=== PATIENT | male | born 1980 | race Caucasian/White ===

== ENCOUNTER 2018-04-20 01:11 | Emergency (ER) | payer SELFPAY ==
[2018-04-20 01:58] LABS: Protime INR 0.94
[2018-04-20 02:08] LABS: Barbiturates NEGATIVE (NEGATIVE); Benzodiazepines NEGATIVE (NEGATIVE); Cocaine NEGATIVE (NEGATIVE); METHAMPHETAM POSITIVE (NEGATIVE); Methadone NEGATIVE (NEGATIVE); Opiates NEGATIVE (NEGATIVE); Phencyclidine NEGATIVE (NEGATIVE); THC Cannibis NEGATIVE (NEGATIVE)
[2018-04-20 02:11] LABS: Absolute Lymphocytes (CBC) 3.2 K/uL (0.7-4.9); Absolute Monocytes 0.6 K/uL (0.1-1.3); Absolute Neutrophil 3.5 K/uL (1.8-8.0); Basophils % 1.3 % (0-1.3); Eosinophils % 4.2 % (0-4.4); Hematocrit 40.4 % (39.6-49.0); Lymphocytes % 41.8 % (15.3-44.8); MCH 30.5 pg (27.0-35.0); MCV 87.3 fL (80-100); MPV 8.7 fL (7.6-11.3); Monocytes % 7.4 % (3.3-12.3); RBC Red Blood Cell Count 4.62 M/uL (4.33-5.43)
--- NOTE | 2018-04-20 02:14 | EDPHYS ---
Physician Documentation [facility] Name: Enmanuel Perez Age: 37 yrs Sex: Male : 1980 Arrival Date: 04/20/2018 Time: 01:11 Bed 6 Private MD: ED Physician Yony Heard HPI: 04/20 02:06 This 37 yrs old Male presents to ER via Ambulatory with complaints of Chest skyler Pain. 02:06 The patient or guardian reports chest pain that is located primarily in the epigastric skyler area, anterior chest wall. The pain does not radiate. Associated signs and symptoms: The patient has no apparent associated signs or symptoms. The chest pain is described as aching. Duration: The patient or guardian reports multiple episodes, with no pattern. Modifying factors: The symptoms are alleviated by nothing. Severity of pain: At its worst the pain was mild moderate in the emergency department the pain is unchanged. The patient has not experienced similar symptoms in the past. Historical: - Allergies: 01:30 Clindamycin; ak1 - Home Meds: 01:30 None [Active]; ak1 - PMHx: 01:30 Anxiety; Hypertension; ak1 - PSHx: 01:30 None; ak1 - Immunization history:: Adult Immunizations unknown. - Social history:: Smoking status: Patient uses tobacco products, smokes one-half pack cigarettes per day. - Ebola Screening: : No symptoms or risks identified at this time. - Family history:: not pertinent. ROS: 02:06 Constitutional: Negative for fever, chills, and weight loss, Eyes: Negative for injury, skyler pain, redness, and discharge, ENT: Negative for injury, pain, and discharge, Neck: Negative for injury, pain, and swelling, Respiratory: Negative for shortness of breath, cough, wheezing, and pleuritic chest pain, Abdomen/GI: Negative for abdominal pain, nausea, vomiting, diarrhea, and constipation, Back: Negative for injury and pain, : Negative for injury, bleeding, discharge, and swelling, MS/Extremity: Negative for injury and deformity, Skin: Negative for injury, rash, and discoloration, Neuro: Negative for headache, weakness, numbness, tingling, and seizure. 02:06 Cardiovascular: Positive for palpitations. Exam: 02:06 Constitutional: This is a well developed, well nourished patient who is awake, alert, skyler and in no acute distress. Head/Face: Normocephalic, atraumatic. Eyes: Pupils equal round and reactive to light, extra-ocular motions intact. Lids and lashes normal. Conjunctiva and sclera are non-icteric and not injected. Cornea within normal limits. Periorbital areas with no swelling, redness, or edema. ENT: Nares patent. No nasal discharge, no septal abnormalities noted. Tympanic membranes are normal and external auditory canals are clear. Oropharynx with no redness, swelling, or masses, exudates, or evidence of obstruction, uvula midline. Mucous membranes moist. Neck: Trachea midline, no thyromegaly or masses palpated, and no cervical lymphadenopathy. Supple, full range of motion without nuchal rigidity, or vertebral point tenderness. No Meningismus. Chest/axilla: Normal chest wall appearance and motion. Nontender with no deformity. No lesions are appreciated. Cardiovascular: Regular rate and rhythm with a normal S1 and S2. No gallops, murmurs, or rubs. Normal PMI, no JVD. No pulse deficits. Respiratory: Lungs have equal breath sounds bilaterally, clear to auscultation and percussion. No rales, rhonchi or wheezes noted. No increased work of breathing, no retractions or nasal flaring. Abdomen/GI: Soft, non-tender, with normal bowel sounds. No distension or tympany. No guarding or rebound. No evidence of tenderness throughout. Back: No spinal tenderness. No costovertebral tenderness. Full range of motion. Male : Normal genitalia with no discharge or lesions. Skin: Warm, dry with normal turgor. Normal color with no rashes, no lesions, and no evidence of cellulitis. MS/ Extremity: Pulses equal, no cyanosis. Neurovascular intact. Full, normal range of motion. Neuro: Awake and alert, GCS 15, oriented to person, place, time, and situation. Cranial nerves II-XII grossly intact. Motor strength 5/5 in all extremities. Sensory grossly intact. Cerebellar exam normal. Normal gait. Psych: Awake, alert, with orientation to person, place and time. Behavior, mood, and affect are within normal limits. 02:06 Musculoskeletal/extremity: DVT Exam: No signs of deep vein thrombosis. no pain, no swelling, no tenderness, negative Homans' sign noted on exam, no appreciated bluish discoloration, no erythema, no increased warmth. Vital Signs: 01:30 BP 160 / 87; Pulse 98; Resp 18; Temp 98.1; Pulse Ox 97% on R/A; Weight 86.18 kg (R); ak Height 5 ft. 9 in. (175.26 cm) (R); Pain 10/21; 01:56 BP 115 / 70; Pulse 84; Resp 16; Pulse Ox 98% on R/A; mt 01:30 Body Mass Index 28.06 (86.18 kg, 175.26 cm) [facility] MDM: 01:45 Patient medically screened. [facility] 02:10 Data reviewed: vital signs, nurses notes, lab test result(s), EKG, radiologic studies, [facility] plain films. 04/20 01:44 Order name: Basic Metabolic Panel [facility] 04/20 01:44 Order name: CBC with Diff [facility] 04/20 01:44 Order name: Ckmb [facility] 04/20 01:44 Order name: CPK [facility] 04/20 01:44 Order name: LFT's [facility] 04/20 01:44 Order name: Magnesium [facility] 04/20 01:44 Order name: NT PRO-BNP [facility] 04/20 01:44 Order name: PT-INR [facility] 04/20 01:44 Order name: Ptt, Activated [facility] 04/20 01:44 Order name: Troponin (emerg Dept Use Only) [facility] 04/20 01:44 Order name: UDS; Complete Time: 02:11 [facility] 04/20 01:45 Order name: Basic Metabolic Panel EDMS 04/20 01:51 Order name: Urine Dipstick--Ancillary (enter results) 2 04/20 01:44 Order name: XRAY Chest (1 view) [facility] 04/20 01:44 Order name: EKG; Complete Time: 01:45 [facility] 04/20 01:44 Order name: Cardiac monitoring; Complete Time: 01:48 [facility] 04/20 01:44 Order name: EKG - Nurse/Tech; Complete Time: 01:45 [facility] 04/20 01:44 Order name: IV Saline Lock; Complete Time: 01:52 [facility] 04/20 01:44 Order name: Labs collected and sent; Complete Time: 01:52 ak04/20 01:44 Order name: O2 Per Protocol; Complete Time: :04/20 01:44 Order name: O2 Sat Monitoring; Complete Time: 04/20 01:44 Order name: Urine Dipstick-Ancillary (obtain specimen); Complete Time: nv04/20 02:09 Order name: D-Dimer EDMS Administered Medications: 02:22 Not Given (Patient Eloped): Aspirin 162 mg PO once ao Disposition: 04/20/18 02:13 Patient left the facility after being seen by provider. Preliminary diagnosis are Other chest pain, Anxiety disorder, unspecified. - Patient left due to other. - Condition is Undetermined. - Problem is new. - Symptoms have improved. Signatures: Dispatcher [employer] EDNM Yony Heard MD MD cha Krenek, Amber, RN RN ak1 Mando Knowles RN RN ao Corrections: (The following items were deleted from the chart) 02:09 02:06 D-DIMER+COAG.LAB.BRZ ordered. [facility] EDNM 02:21 02:13 04/20/2018 02:13 Patient left the facility after being seen by provider. ao Preliminary diagnosis is Other chest pain; Anxiety disorder, unspecified. Reason stated they are leaving due to other. Condition is Undetermined. Problem is new. Symptoms have improved. skyler
--- NOTE | 2018-04-20 02:14 | ER ---
Nurse's Notes [facility] Name: Enmanuel Perez Age: 37 yrs Sex: Male : 1980 Arrival Date: 04/20/2018 Time: 01:11 Bed 6 Private MD: Diagnosis: Other chest pain;Anxiety disorder, unspecified Presentation: 04/20 01:28 Presenting complaint: Patient states: intermittent chest pain X1 week SET OFF BLOCKER. pt stated he ak1 "looked up" his s/s and "i have ever one of them, i had a heart attack 6 days ago. I am sure of it" pt stated he has had SOB going to his kitchen, dizzy, anxiety, left foot swelling, neck pain. pt denies chest pain at this time. Transition of care: patient was not received from another setting of care. Onset of symptoms is unknown. Risk Assessment: Do you want to hurt yourself or someone else? Patient reports no desire to harm self or others. Initial Sepsis Screen: Does the patient meet any 2 criteria? No. Patient's initial sepsis screen is negative. Does the patient have a suspected source of infection? No. Patient's initial sepsis screen is negative. Care prior to arrival: None. 01:28 Method Of Arrival: Ambulatory ak1 01:28 Acuity: SHELTON 3 ak1 Triage Assessment: 01:30 General: Appears in no apparent distress. Behavior is anxious. Pain: Complains of pain ak1 in chest. EENT: No signs and/or symptoms were reported regarding the EENT system. Historical: - Allergies: 01:30 Clindamycin; ak1 - Home Meds: 01:30 None [Active]; ak1 - PMHx: 01:30 Anxiety; Hypertension; ak1 - PSHx: 01:30 None; ak1 - Immunization history:: Adult Immunizations unknown. - Social history:: Smoking status: Patient uses tobacco products, smokes one-half pack cigarettes per day. - Ebola Screening: : No symptoms or risks identified at this time. - Family history:: not pertinent. Screenin:34 Abuse screen: Denies threats or abuse. Denies injuries from another. Nutritional ak1 screening: No deficits noted. Tuberculosis screening: No symptoms or risk factors identified. Fall Risk None identified. Assessment: 01:35 Pain: Pain began 1 week SET OFF BLOCKER. ak1 01:40 General: Appears in no apparent distress. comfortable, Behavior is calm, cooperative, ao appropriate for age. Pain: Complains of pain in chest Pain does not radiate. Pain currently is 9 out of 10 on a pain scale. Neuro: Level of Consciousness is awake, alert, obeys commands, Oriented to person, place, time, situation, Appropriate for age Moves all extremities. Speech is normal, Facial symmetry appears normal, Pupils are PERRLA. Cardiovascular: Reports chest pain, Denies nausea, shortness of breath, vomiting. Respiratory: Airway is patent Respiratory effort is even, unlabored, Respiratory pattern is regular, symmetrical, Breath sounds are clear bilaterally. GI: Abdomen is non-distended. : No signs and/or symptoms were reported regarding the genitourinary system. EENT: No signs and/or symptoms were reported regarding the EENT system. Derm: Skin is intact, Skin is clammy, Skin temperature is warm Wound noted. Musculoskeletal: Circulation, motion, and sensation intact. Range of motion: intact in all extremities. 02:14 Pain: Pain does not radiate. Cardiovascular: No deficits noted. ao 02:15 Reassessment: Patient walk out of the room stating "It does not make sense to be here ao when I'm not getting pain medication" Patient stopped to get his IV pull and then left. DR Heard spoke to patient but patient refused treatment and left the ER. Vital Signs: 01:30 BP 160 / 87; Pulse 98; Resp 18; Temp 98.1; Pulse Ox 97% on R/A; Weight 86.18 kg (R); ak1 Height 5 ft. 9 in. (175.26 cm) (R); Pain /; 01:56 BP 115 / 70; Pulse 84; Resp 16; Pulse Ox 98% on R/A; mt 01:30 Body Mass Index 28.06 (86.18 kg, 175.26 cm) ak1 ED Course: 01:11 Patient arrived in ED. ds1 01:30 Triage completed. ak1 01:30 Arm band placed on Patient placed in an exam room, on a stretcher, on pulse oximetry, ak1 Patient notified of wait time. 01:34 Patient has correct armband on for positive identification. Bed in low position. Call ak1 light in reach. Side rails up X 1. Pulse ox on. NIBP on. 01:34 Patient maintains SpO2 saturation greater than 95% on room air. ak1 01:36 EKG completed in triage. Results shown to . ak1 01:45 Yony Heard MD is Attending Physician. skyler 01:48 Mando Knowles, RN is Primary Nurse. ao 01:53 X-ray completed. Portable x-ray completed in exam room. Patient tolerated procedure kw well. 01:53 Inserted saline lock: 20 gauge in right forearm, using aseptic technique. Blood mt collected. 01:54 XRAY Chest (1 view) In Process Unspecified. EDMS 02:13 No provider procedures requiring assistance completed. IV discontinued, intact, ao bleeding controlled, No redness/swelling at site. Pressure dressing applied. Administered Medications: 02:22 Not Given (Patient Eloped): Aspirin 162 mg PO once ao Outcome: 02:14 Eloped from patient exam room, after seeing physician ao 02:14 Condition: stable 02:14 Instructed on Patient would not wait no pain medication was given 02:21 Patient left the ED. ao Signatures: Dispatcher [employer] EDNC Yony Heard MD MD cha Sanford, Demi ds1 Modesta Coulter Amber RN RN ak1 Mando Knowles, RN Maryse Caraballo mt
[2018-04-20 02:15] LABS: Urine Blood NEGATIVE (NEG); Urine Glucose NEGATIVE (NEG); Urine Protein TRACE (NEG); Urine Specific Gravity >1.030 (1.005-1.030)
[2018-04-20 02:26] VITALS: TEMP 98.1
[2018-04-20 02:27] VITALS: BP 115/70; O2SAT 98
[2018-04-20 02:30] LABS: ALT/SGPT 25 U/L (12-78); AST/SGOT 19 U/L (15-37); Albumin 3.5 g/dL (3.4-5.0); Alkaline Phosphatase 82 U/L (45-117); BUN Blood Urea Nitrogen 17 mg/dL (7-18); Bicarbonate 26 mmol/L (21-32); Bilirubin Direct < 0.1 mg/dL (0-0.2); Bilirubin Total 0.2 mg/dL (0.2-1.0); CKMB Creatine Kinase MB 5.5 ng/mL (0.3-3.6); Creatine Phosphokinase 261 U/L (39-308); Glucose Level 125 mg/dL (74-106); Magnesium 2.2 mg/dL (1.8-2.4); NT PRO-BNP 21 pg/mL (<125); Potassium 3.9 mmol/L (3.5-5.1); Protein, Total 6.9 g/dL (6.4-8.2); Sodium Level 143 mmol/L (136-145)
--- NOTE | 2018-04-20 06:30 | EKG ---
Test Date: 2018-04-20 Test Time: 01:29:37 Special Education Math Teacher: SHEILA MEASUREMENT RESULTS: Intervals: Rate: 85 OR: 154 QRSD: 90 QT: 366 QTc: 435 [place]: P: 77 OR: 154 QRS: 92 T: 62 INTERPRETIVE STATEMENTS: Normal sinus rhythm Rightward axis Borderline ECG Compared to ECG 02/22/2017 02:38:13 Sinus tachycardia no longer present Electronically Signed On 04-20-18 06:29:37 CDT by Brent Gupta
--- NOTE | 2018-04-20 08:59 | RAD REPORT ---
EXAM DESCRIPTION: RAD - Chest Single View - 04/20/2018 1:56 am CLINICAL HISTORY: CHEST PAIN Chest pain. COMPARISON: Chest Single View dated 02/22/2017; Chest Single View dated 05/22/2016 FINDINGS: Portable technique limits examination quality. The lungs are grossly clear. The heart is normal in size. No displaced fractures. IMPRESSION: No acute intrathoracic process suspected.
== END 2018-04-20 02:21 | disposition left against medical advice (07) ==
LOC: ER 01:11
DX: F41.9 Anxiety disorder, unspecified (principal); I10 Essential (primary) hypertension; Z88.3 Allergy status to other anti-infective agents
CPT/HCPCS: 36415; 71045; 80048; 80076; 80307; 81003; 82550; 82553; 83735; 83880; 84484; 85025; 85379; 85610; 85730; 93005; 99284

== ENCOUNTER 2022-03-29 02:19 | Emergency (ER) | payer SELFPAY ==
[2022-03-29 03:03] LABS: Absolute Lymphocytes (CBC) 2.7 K/uL (0.7-4.9); Hematocrit 43.7 % (39.6-49.0); Lymphocytes % 34.3 % (15.3-44.8); MPV 7.9 fL (7.6-11.3); RBC Red Blood Cell Count 5.06 M/uL (4.33-5.43)
[2022-03-29 03:22] LABS: Potassium 3.6 mmol/L (3.5-5.1)
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
[2022-03-29 05:12] VITALS: TEMP 97.8
[2022-03-29 05:14] VITALS: O2SAT 98
[2022-03-29 05:16] VITALS: BP 133/84
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
== END 2022-03-29 05:05 | disposition home or self-care (01) ==
LOC: ER 02:19
DX: S16.1XXA Strain of muscle, fascia and tendon at neck level, initial encounter (principal); S29.012A Strain of muscle and tendon of back wall of thorax, initial encounter; S39.012A Strain of muscle, fascia and tendon of lower back, initial encounter; V43.52XA Car driver injured in collision with other type car in traffic accident, initial encounter; Y93.89 Activity, other specified; Y92.410 Unspecified street and highway as the place of occurrence of the external cause; Z88.3 Allergy status to other anti-infective agents; F41.9 Anxiety disorder, unspecified; I10 Essential (primary) hypertension; F17.210 Nicotine dependence, cigarettes, uncomplicated
CPT/HCPCS: 36415; 70450; 71260; 72125; 74177; 80048; 85025; 99284; Q9967

== ENCOUNTER 2024-11-28 06:46 | Emergency (ER) | payer OTHER ==
[2024-11-28] MEDS ORDERED: IBUPROFEN 200 MG TAB PO ONE (07:38)
[2024-11-28 07:50] LABS: Absolute Eosinophils 0.1 K/uL (0-0.5); Absolute Lymphocytes (CBC) 1.9 K/uL (0.7-4.9); Absolute Monocytes 0.6 K/uL (0.1-1.3); Absolute Neutrophil 4.3 K/uL (1.8-8.0); Basophils % 0.4 % (0-1.3); Eosinophils % 1.3 % (0-4.4); Hematocrit 41.5 % (39.6-49.0); Hemoglobin 13.9 g/dL (13.6-17.9); Lymphocytes % 26.9 % (15.3-44.8); MCH 29.3 pg (27.0-35.0); MCHC 33.6 g/dL (32.0-36.0); MCV 87.1 fL (80-100); MPV 7.7 fL (7.6-11.3); Monocytes % 9.3 % (3.3-12.3); Neutrophils % 62.1 % (41.7-73.7); Nucleated Red Blood Cells % 0.1 % (0-0); Platelets 225 thou/uL (152-406); RBC Red Blood Cell Count 4.77 M/uL (4.33-5.43); Red Cell Distribution Width 13.7 % (12.1-15.2)
--- NOTE | 2024-11-28 08:05 | RAD REPORT ---
EXAMINATION: ONE VIEW CHEST XR CLINICAL INDICATION: Male, 44 years old.,COUGH TECHNIQUE: Frontal chest projection is submitted. Examination is limited by patient positioning and t echnique. COMPARISON: 04/20/2018 FINDINGS: The lungs are well inflated and clear. No pneumothorax or sizable effusion. The heart is normal in s ize. Mediastinal contours are unremarkable. IMPRESSION: No acute intrathoracic abnormalities.
[2024-11-28 08:24] LABS: Albumin 3.3 g/dL (3.4-5.0); Albumin/Globulin Ratio 0.9 (1.1-1.8); Anion Gap 7.8 mEq/L (5.0-15.0); Bilirubin Total 0.3 mg/dL (0.2-1.0); Globulin 3.6 g/dL (2.3-3.5); Potassium 3.8 mEq/L (3.5-5.1); Protein, Total 6.9 g/dL (6.4-8.2)
--- NOTE | 2024-11-28 08:52 | EDPHYS ---
Physician Documentation [facility] Name: Enmanuel Perez Age: 44 yrs Sex: Male : 1980 Arrival Date: 11/28/2024 Time: 06:46 Bed 7 Private MD: Van Grover ED Physician Jerardo Ellington HPI: 11/28 07:48 This 44 yrs old Male presents to ER via Unassigned with complaints of Headache, Throat rt pain. 07:48 Patient presents to the ED with a right lower dental pain starting about 6 days ago. rt States that it now radiates to the right side of the head. Patient also reports over the past year to having poor wound healing, growing area of swelling over the left scapula. States has been too achy. Denies other acute complaints at this time, symptoms are moderate in severity, no other aggravating or alleviating factors.. Historical: - Allergies: 08:11 Clindamycin; ko1 - PMHx: 08:11 Anxiety; Hypertension; ko1 - Immunization history:: Adult Immunizations up to date. - Infectious Disease History:: Denies. - Family history:: not pertinent. - Social history:: Smoking status: Patient denies any tobacco usage or history of. ROS: 07:48 Constitutional: Negative for fever, chills, and weight loss, Cardiovascular: Negative rt for chest pain, palpitations, and edema, Respiratory: Negative for shortness of breath, cough, wheezing, and pleuritic chest pain, Abdomen/GI: Negative for abdominal pain, nausea, vomiting, diarrhea, and constipation, MS/Extremity: Negative for injury and deformity, 07:48 ENT: Positive for dental pain, sore throat, Exam: 07:48 Constitutional: This is a well developed, well nourished patient who is awake, alert, rt and in no acute distress. Chest/axilla: Normal chest wall appearance and motion. Nontender with no deformity. No lesions are appreciated. Cardiovascular: Regular rate and rhythm with a normal S1 and S2. No gallops, murmurs, or rubs. Normal PMI, no JVD. No pulse deficits. Respiratory: Lungs have equal breath sounds bilaterally, clear to auscultation and percussion. No rales, rhonchi or wheezes noted. No increased work of breathing, no retractions or nasal flaring. Abdomen/GI: Soft, non-tender, with normal bowel sounds. No distension or tympany. No guarding or rebound. No evidence of tenderness throughout. 07:48 ENT: Multiple dental caries noted, no posterior pharyngeal erythema, exudates, swelling. 07:48 Skin: There is about 4 cm circular swelling over the left scapula, not fluctuant, no erythema, no focal tenderness. Vital Signs: 07:38 BP 134 / 88; Pulse 72; Pulse Ox 100% on R/A; rs6 08:57 BP 137 / 90; Pulse 68; Resp 15; Pulse Ox 99% on R/A; ko1 MDM: 06:58 Medical Screening Exam initiated rt 09:32 Differential diagnosis: Dental caries, odontogenic infection. Data reviewed: vital rt signs, nurses notes, lab test result(s), radiologic studies. I considered the following discharge prescriptions or medication management in the emergency department Medications were administered in the Emergency Department. See MAR. Independent interpretation of the following test(s) in the Emergency Department X-Ray: My interpretation is No infiltrate seen on my interpretation of x-ray images. Care significantly affected by the following chronic conditions: Hypertension. Counseling: I had a detailed discussion with the patient and/or guardian regarding the historical points, exam findings, and any diagnostic results supporting the discharge/admit diagnosis, lab results, radiology results, the need for outpatient follow up. ED course: Patient with dental pain, multiple dental caries noted, will start antibiotics, no signs for RPA, CERTIFIED ACTIVITIES DIRECTOR, Alon's angina. CT scan of the face is not indicated. I evaluated the area on the patient's back, most likely is a lipoma, however, I instructed the patient that his negative workup today is by no means a definitive rule out for cancer and he was instructed to follow-up with primary care for further cancer screenings as appropriate. Instructed patient to follow-up with dentist for more definitive care of the dental caries.. 11/28 07:25 Order name: CBC with Diff; Complete Time: 08:07 rt 11/28 07:25 Order name: CMP; Complete Time: 08:24 rt 11/28 07:25 Order name: Chest Single View XRAY; Complete Time: 08:07 rt Administered Medications: 07:44 Drug: Ibuprofen PO 600 mg PO once Route: PO; ko1 08:14 Follow up: Response: No adverse reaction ko1 Disposition Summary: 11/28/24 08:51 Discharge Ordered Notes: Location: Home rt Problem: new rt Symptoms: have improved rt Condition: Stable rt Diagnosis - Dental caries, unspecified rt Followup: rt - With: Van Grover DO - When: 2 - 3 days - Reason: Discharge Instructions: - Discharge Summary Sheet rt - Dental Caries, Adult rt - Lipoma rt Forms: - Medication Reconciliation Form rt - Antibiotic Education rt - Prescription Opioid Use rt - Patient Portal Instructions rt - Leadership Thank You Letter rt Prescriptions: - Amoxicillin 875 mg Oral Tablet - take 1 tablet ORAL route every 12 hours for 10 days; 20 tablet; Refills: 0, rt Product Selection Permitted - Ibuprofen 600 mg Oral Tablet - take 1 tablet ORAL route every 6 hours As needed take with food; 30 tablet; rt Refills: 0, Product Selection Permitted Signatures: Dispatcher [employer] Lindsey Pope, JULIANO RN ko1 Jerardo Ellington MD MD rt
--- NOTE | 2024-11-28 08:52 | ER ---
Nurse's Notes [facility] Name: Enmanuel Perez Age: 44 yrs Sex: Male : 1980 Arrival Date: 11/28/2024 Time: 06:46 Bed 7 Private MD: Van Grover Diagnosis: Dental caries, unspecified Presentation: 11/28 07:45 Chief complaint: Patient states: mouth, throat pain that started about a week ago. ko1 Coronavirus screen: At this time, the client does not indicate any symptoms associated with coronavirus-19. Ebola Screen: No symptoms or risks identified at this time. Initial Sepsis Screen: Does the patient meet any 2 criteria? No. Patient's initial sepsis screen is negative. Does the patient have a suspected source of infection? No. Patient's initial sepsis screen is negative. Risk Assessment: Do you want to hurt yourself or someone else? Patient reports no desire to harm self or others. Onset of symptoms is unknown. 07:45 Method Of Arrival: Ambulatory ko1 07:45 Acuity: [place] 3 ko1 Triage Assessment: 08:11 Headache History: Denies prior headaches. General: Appears in no apparent distress. ko1 Behavior is calm, cooperative, appropriate for age. Pain: Pain currently is 6 out of 10 on a pain scale. Pain began a week ago Also complains of no other associated symptoms. EENT: Reports pain when swallowing. Neuro: No deficits noted. Cardiovascular: No deficits noted. Respiratory: No deficits noted. GI: No deficits noted. No signs and/or symptoms were reported involving the gastrointestinal system. : No deficits noted. No signs and/or symptoms were reported regarding the genitourinary system. Derm: No deficits noted. No signs and/or symptoms reported regarding the dermatologic system. Musculoskeletal: No deficits noted. No signs and/or symptoms reported regarding the musculoskeletal system. Historical: - Allergies: 08:11 Clindamycin; ko1 - PMHx: 08:11 Anxiety; Hypertension; ko1 - Immunization history:: Adult Immunizations up to date. - Infectious Disease History:: Denies. - Family history:: not pertinent. - Social history:: Smoking status: Patient denies any tobacco usage or history of. Screenin:45 [facility] ED Fall Risk Assessment (Adult) History of falling in the last 3 months, ko1 including since admission No falls in past 3 months (0 pts) Confusion or Disorientation No (0 pts) Intoxicated or Sedated No (0 pts) Impaired Gait No (0 pts) Mobility Assist Device Used No (0 pt) Altered Elimination No (0 pt) Score/Fall Risk Level 0 - 2 = Low Risk Oriented to surroundings, Maintained a safe environment, Educated pt \T\ family on fall prevention, incl call for assistance when getting out of bed, Assessed \T\ reinforced patient's understanding of fall precautions, Hourly rounding (assess needs \T\ fall precautionary measures) done. Abuse screen: Denies threats or abuse. Denies injuries from another. Nutritional screening: No deficits noted. Tuberculosis screening: No symptoms or risk factors identified. Assessment: 07:45 General: Appears in no apparent distress. Behavior is calm, cooperative, appropriate ko1 for age. Pain: Complains of pain in mouth and throat. Neuro: No deficits noted. Cardiovascular: No deficits noted. Respiratory: No deficits noted. GI: No deficits noted. No signs and/or symptoms were reported involving the gastrointestinal system. : No deficits noted. No signs and/or symptoms were reported regarding the genitourinary system. EENT: No deficits noted. No signs and/or symptoms were reported regarding the EENT system. Derm: No deficits noted. No signs and/or symptoms reported regarding the dermatologic system. Musculoskeletal: No deficits noted. No signs and/or symptoms reported regarding the musculoskeletal system. Vital Signs: 07:38 BP 134 / 88; Pulse 72; Pulse Ox 100% on R/A; rs6 08:57 BP 137 / 90; Pulse 68; Resp 15; Pulse Ox 99% on R/A; ko1 ED Course: 06:51 Patient arrived in ED. gm2 06:51 Van Grover DO is Private Physician. gm2 06:58 Jerardo Ellington MD is Attending Physician. rt 07:23 Lindsey Brewer, JULIANO is Primary Nurse. ko1 07:37 Inserted saline lock: 20 gauge in right forearm, using aseptic technique. Blood rs6 collected. Flushed with 10 mL NS. 07:45 Chest Single View XRAY In Process Unspecified. EDMS 07:45 No provider procedures requiring assistance completed. ko1 07:45 Patient has correct armband on for positive identification. Allergy band placed. Bed in ko1 low position. Call light in reach. Side rails up X 1. Provided Education on: labs. Pulse ox on. NIBP on. Door closed. Noise minimized. Lights dimmed. Warm blanket given. Pillow given. 08:11 Triage completed. ko1 08:11 Arm band placed on right wrist. Patient placed in an exam room, on a stretcher, on ko1 pulse oximetry, Patient notified of wait time. 08:51 Van Grover DO is Referral Physician. rt 08:57 IV discontinued, intact, bleeding controlled, No redness/swelling at site. Pressure ko1 dressing applied. Administered Medications: 07:44 Drug: Ibuprofen PO 600 mg PO once Route: PO; ko1 08:14 Follow up: Response: No adverse reaction ko1 Medication: 07:45 VIS not applicable for this client. ko1 Outcome: 08:51 Discharge ordered by MD. rt 08:57 Discharged to home ambulatory, ko1 08:57 Condition: stable 08:57 Discharge instructions given to patient, Instructed on discharge instructions, follow up and referral plans. medication usage, Demonstrated understanding of instructions, follow-up care, medications, Prescriptions given X 2, 09:03 Patient left the ED. ko1 Signatures: Dispatcher [employer] EDMS Lindsey Brewer RN RN ko1 Jerardo Ellington MD MD rt Taylor Ng gm2 Jerardo Lares rs6 Corrections: (The following items were deleted from the chart) 09:03 08:57 Discharge instructions given to patient, Instructed on discharge instructions, ko1 follow up and referral plans. medication usage, Demonstrated understanding of instructions, follow-up care, medications, Prescriptions given X 1, ko1
[2024-11-28 09:11] VITALS: BP 137/90; O2SAT 99
== END 2024-11-28 09:03 | disposition home or self-care (01) ==
LOC: ER 06:46
DX: K02.9 Dental caries, unspecified (principal); I10 Essential (primary) hypertension
CPT/HCPCS: 36415; 71045; 80053; 85025

== ENCOUNTER 2025-06-01 23:48 | Emergency (ER) | payer OTHER, SELFPAY ==
--- OUTSIDE RECORDS SUMMARY | 2025-06-01 23:52 | XMS REPORT | Continuity of Care Document ---
Author Name Unknown Address [address] [place] [address] [address] [place] [address] [facility] Address [address] [facility] [place] [address] Care Team Providers Care Radiology Receptionist Name Role Phone LOIS WEEKS Attending Clinician Unavailable Payers Payer Name Policy Type Policy Number Effective Date Expirati on Date Source [employer]elyne [employer] A[employer]LYST 94 9 [id number] 2024 00:00:00 Problems Condition Name Condition Details Condition Category Status Onset Date Resolution Date Last Treatment Date Treating Clinician Comments Source Lipoma of torso Lipoma of torso Disease Active 12-09 00:00: 00 Sun Baxter - Externa l Dental caries Dental caries Disease Active 12-09 00:00: 00 Sun Joya Externa l Thyroid disease Thyroid disease Disease Active 12-09 00:00: 00 Sun Baxter - Externa l Allergies, Adverse Reactions, Alerts Allergy Name Allergy Type Status Severity Reaction(s) Onset Date Inactive Date Treating Clinician Comments Source Clindamy westley Propensi ty to adverse reaction s Active Other 05-22 00:00: 00 Sun Baxter - Externa l Social History Social Habit Start Date Stop Date Quantity Comments Source Sexual orientation K ann Baxter - External History of tobacco use Cigarette Smoker Sun zamudio - External Alcoholic beverage intake 2024-12-09 00:00:00 2024-12-09 00:00:00 Ex-drinker (finding) Sun Baxter - External History of Social function 2024-12-09 00:00:00 2024-12-09 00:00:00 Sun Baxter - External Sex 2023-10-07 23:46:31 2023-10-07 23:46:31 Male (finding) Sun Baxter - Deborah Sex assigned at 1980 00:00:00 1980 00:00:00 Sun Baxter - External Smoking Status Start Date Stop Date Source Occasional tobacco smoker 2024-12-09 00:00:00 Sun Baxter - External Medications Ordered Medication Name Filled Medication Name Start Date Stop Date Current Medication? Ordering Clinician Indication Dosage Frequency Signature (SIG) Comments Components Source Amoxicillin 875 MG oral Tablet 11-28 00:00: 00 12-09 00:00 :00 No 875mg Take 1 tablet (875 mg total) by mouth every 12 hours FOR 10 DAYS. Sun rhoades Ibuprofen (MOTRIN) 600 MG oral Tablet 11-28 00:00: 00 12-09 00:00 :00 No 600mg Q.25D Take 1 tablet (600 mg total) by mouth every 6 hours as needed FOR PAIN. Sun rhoades Vital Signs Vital Name Observation Time Observation Value Comments S ource Systolic blood pressure 2024-12-09 19:42:00 134 mm[Hg] Sun Messer ld - External Diastolic blood pressure 2024-12-09 19:42:00 80 mm[Hg] Sun Messer ld - External Heart rate 2024-12-09 19:42:00 112 /min Echo Baxter - External Body temperature 2024-12-09 19:42:00 37.11 Qiana Sun Baxter - External Respiratory rate 2024-12-09 19:42:00 20 /min Sun Baxter - External Body height 2024-12-09 19:42:00 175.3 cm Kami chavez arpita - External Body weight 2024-12-09 19:42:00 86.183 kg Kami chavez luluold - External BMI 2024-12-09 19:42:00 28.06 kg/m2 Kami chavez luluold - External Encounters Start Date/Time End Date/Time Encounter Type Admission Type Attending [facility] Care Department Encounter ID Source 2024-12-16 15:00:00 2024-12-16 15:00:00 Outpatient LOIS WEEKS [id number] Sun Baxter 2024-12-09 13:30:00 2024-12-09 13:30:00 [id number] 10:30:00 2024-12-08 10:30:00 Outpatient LOIS WEEKS [id number] [facility] Notes Date/Time Note Provider Source 2024-12-09 13:45:10 Chief Complaint Patient presents with New Patient Has lump to back for 2 years. Now is painful Nancy Siddiqui LVN [facility] [place] [facility]
[2025-06-02 00:58] LABS: Influenza A Ag Negative; Influenza B Ag Negative; SARS-CoV-2 Antigen Rapid Res Negative (Negative)
--- NOTE | 2025-06-02 01:22 | EDPHYS ---
Physician Documentation [facility] Name: Enmanuel Perez Age: 44 yrs Sex: Male : 1980 Arrival Date: 06/01/2025 Time: 23:48 Bed 7 Private MD: ED Physician Dex Hays HPI: 06/02 00:20 This 44 yrs old Male presents to ER via Ambulatory with complaints of Flu Symptoms. cp 00:20 The patient or guardian reports cough, that is intermittent, flu symptoms, body aches, cp sore throat. 00:20 Onset: The symptoms/episode began/occurred 3 day(s) ago. Associated signs and symptoms: cp Pertinent negatives: chest pain, diarrhea, vomiting, abdominal pain. Severity of symptoms: in the emergency department the symptoms are unchanged despite home interventions. Historical: - Allergies: 00:08 Clindamycin; vc1 - Home Meds: 00:08 None [Active]; vc1 - PMHx: 00:08 Hypertension; Anxiety; vc1 - PSHx: 00:08 None; vc1 - Immunization history:: Client reports having NOT received the Covid vaccine. - Infectious Disease History:: Denies. - Social history:: Smoking status: Patient reports the use of cigarette tobacco products, few a day, Reported history of juuling and/or vaping. ROS: 00:25 Constitutional: Negative for fever, cp 00:25 Eyes: Negative for injury, pain, redness, and discharge, cp 00:25 ENT: Positive for sore throat, Negative for drainage from ear(s), ear pain, difficulty swallowing, difficulty handling secretions, 00:25 Cardiovascular: Negative for chest pain, 00:25 Respiratory: Positive for cough, 00:25 Abdomen/GI: Negative for vomiting, diarrhea, constipation, 00:25 Skin: Negative for rash, 00:25 Neuro: Negative for altered mental status, headache, 00:25 All other systems are negative, Exam: 00:30 Constitutional: The patient appears in no acute distress, alert, awake, cp non-diaphoretic, non-toxic, well developed, well nourished, 00:30 Head/Face: Normocephalic, atraumatic. cp 00:30 Eyes: Periorbital structures: appear normal, Conjunctiva: normal, no exudate, no injection, Sclera: no appreciated abnormality, Lids and lashes: appear normal, bilaterally, 00:30 ENT: External ear(s): are unremarkable, Ear canal(s): are normal, clear, TM's: dullness, bilaterally, Nose: is normal, Mouth: Lips: moist, Oral mucosa: moist, Posterior pharynx: Airway: no evidence of obstruction, patent, Tonsils: no enlargement, no exudate, erythema, that is mild, exudate, is not appreciated, 00:30 Neck: ROM/movement: is normal, is supple, without pain, no range of motions limitations, no meningismus, 00:30 Cardiovascular: Rate: normal, 00:30 Respiratory: the patient does not display signs of respiratory distress, Respirations: normal, no use of accessory muscles, no retractions, labored breathing, is not present, Breath sounds: stridor, is not appreciated, wheezing: is not appreciated, 00:30 Abdomen/GI: Exam negative for discomfort, distension, guarding, Inspection: abdomen appears normal, Vital Signs: 00:06 BP 149 / 91; Pulse 71; Resp 16; Temp 99.55; Pulse Ox 99% ; Weight 86.18 kg; Height 5 vc1 ft. 9 in. ; Pain 0/10; 03:00 BP 150 / 93; Pulse 64; Resp 18 S; Pulse Ox 99% on R/A; ha1 00:06 Body Mass Index 28.06 (86.18 kg, 175.26 cm) vc1 00:06 Pain Scale: Adult vc1 MDM: 00:07 Medical Screening Exam initiated cp 01:20 Data reviewed: vital signs, nurses notes, lab test result(s), radiologic studies, plain cp films, and as a result, I will discharge patient. 01:20 Differential diagnosis: bronchitis, flu, pneumonia, strep throat, COVID-19. Independent cp interpretation of the following test(s) in the Emergency Department X-Ray: My interpretation is images of chest negative for focal pneumonia. Counseling: I had a detailed discussion with the patient and/or guardian regarding the historical points, exam findings, and any diagnostic results supporting the discharge/admit diagnosis, lab results, radiology results, to return to the emergency department if symptoms worsen or persist or if there are any questions or concerns that arise at home. 06/02 00:18 Order name: COVID-19 Ag + Flu A+B Ag; Complete Time: 01:55 cp 06/02 01:55 Interpretation: Reviewed. cp 06/02 00:18 Order name: Group A Streptococcus Rapid; Complete Time: 01:55 cp 06/02 00:56 Order name: Throat Culture EDMS 06/02 00:18 Order name: Chest Pa And Lat (2 Views) XRAY; Complete Time: 01:55 cp 06/02 01:55 Interpretation: Report reviewed. cp Administered Medications: No medications were administered Disposition: 20:27 Co-signature as Attending Physician, Dex Hays MD I agree with the assessment sp4 and plan of care. I reviewed the patient's care provided by the Advanced Practice Provider and agree with the diagnosis and treatment plan. Disposition Summary: 06/02/25 01:21 Discharge Ordered Notes: Location: Home cp Problem: new cp Symptoms: have improved cp Condition: Stable cp Diagnosis - Cough cp Followup: cp - With: Private Physician - When: 2 - 3 days - Reason: Worsening of condition Discharge Instructions: - Discharge Summary Sheet cp - Cough, Adult cp Forms: - Medication Reconciliation Form cp - Antibiotic Education cp - Prescription Opioid Use cp - Patient Portal Instructions cp - Leadership Thank You Letter cp Prescriptions: - Bromfed DM 2-30-10 mg/5 mL Oral syrup - administer 10 milliliter ORAL route every 6-8 hours as needed for cold cp symptoms; 240 milliliter; Refills: 0, Product Selection Permitted - Zithromax Z-Natan 250 mg Oral Tablet - take 1 tablet ORAL route as directed for 5 days Day 1 - take two (2) tablets cp one time. Day 2, 3, 4 , 5 take one (1) tablet once daily.; 6 tablet; Refills: 0, Product Selection Permitted Signatures: Dispatcher [employer] EDHI Yony Dietrich PA-C PA-C cp Calcote, Vanessa, RN RN vc1 Dex Hays MD MD sp4
--- NOTE | 2025-06-02 01:22 | ER ---
Nurse's Notes [facility] Name: Enmanuel Perez Age: 44 yrs Sex: Male : 1980 Arrival Date: 06/01/2025 Time: 23:48 Bed 7 Private MD: Diagnosis: Cough Presentation: 06/02 00:06 Chief complaint: Patient states: Chest morocho, body aches, neck aches, can not taste. vc1 Coronavirus screen: Client denies travel out of the [place] in the last 14 days. cough unrelated to allergies, fever, nausea, loss of taste or smell, Client presents with at least one sign or symptom that may indicate coronavirus-19. Ebola Screen: Patient negative for fever greater than or equal to 101.5 degrees Fahrenheit, and additional compatible Ebola Virus Disease symptoms Patient denies exposure to infectious person. Patient denies travel to an Ebola-affected area in the 21 days before illness onset. No symptoms or risks identified at this time. Initial Sepsis Screen: Does the patient meet any 2 criteria? No. Patient's initial sepsis screen is negative. Does the patient have a suspected source of infection? No. Patient's initial sepsis screen is negative. Risk Assessment: Do you want to hurt yourself or someone else? Patient reports no desire to harm self or others. Onset of symptoms was May 30, 2025. 00:06 Method Of Arrival: Ambulatory vc1 00:06 Acuity: [place] 4 vc1 Triage Assessment: 00:10 General: Appears in no apparent distress. comfortable, Behavior is calm, cooperative, vc1 appropriate for age. Pain: Complains of pain in generalized body aches. EENT: No deficits noted. No signs and/or symptoms were reported regarding the EENT system. Neuro: Level of Consciousness is awake, alert, obeys commands, Oriented to person, place, time, situation, Appropriate for age. Cardiovascular: Capillary refill < 3 seconds Patient's skin is warm and dry. Respiratory: Reports cough that is Airway is patent Respiratory effort is even, unlabored, Respiratory pattern is regular, symmetrical. GI: Reports nausea. : No deficits noted. No signs and/or symptoms were reported regarding the genitourinary system. Derm: Skin is intact, is healthy with good turgor, Skin is dry, Skin is normal, Skin temperature is warm. Musculoskeletal: Circulation, motion, and sensation intact. Range of motion: intact in all extremities. Historical: - Allergies: 00:08 Clindamycin; vc1 - Home Meds: 00:08 None [Active]; vc1 - PMHx: 00:08 Hypertension; Anxiety; vc1 - PSHx: 00:08 None; vc1 - Immunization history:: Client reports having NOT received the Covid vaccine. - Infectious Disease History:: Denies. - Social history:: Smoking status: Patient reports the use of cigarette tobacco products, few a day, Reported history of juuling and/or vaping. Screenin:15 [facility] ED Fall Risk Assessment (Adult) History of falling in the last 3 months, lg3 including since admission No falls in past 3 months (0 pts) Confusion or Disorientation No (0 pts) Intoxicated or Sedated No (0 pts) Impaired Gait No (0 pts) Mobility Assist Device Used No (0 pt) Altered Elimination No (0 pt) Score/Fall Risk Level 0 - 2 = Low Risk Oriented to surroundings, Maintained a safe environment, Educated pt \T\ family on fall prevention, incl call for assistance when getting out of bed, Assessed \T\ reinforced patient's understanding of fall precautions. Abuse screen: Denies threats or abuse. Denies injuries from another. Nutritional screening: No deficits noted. Tuberculosis screening: No symptoms or risk factors identified. Assessment: 00:15 General: Appears in no apparent distress. comfortable, Behavior is calm, cooperative. lg3 Pain: Complains of pain in generalized body aches. Neuro: No deficits noted. Welch Agitation-Sedation Scale (RASS): 0 - Alert and Calm Level of Consciousness is awake, alert, obeys commands, Oriented to person, place, time, situation. Cardiovascular: No deficits noted. Denies chest pain, shortness of breath, Heart tones S1 S2 present Capillary refill < 3 seconds Clubbing of nail beds is absent JVD is absent Patient's skin is warm and dry. Respiratory: No deficits noted. Reports cough that is dry, persistent pain with cough Airway is patent Trachea midline Respiratory effort is even, unlabored, Respiratory pattern is regular, symmetrical, Breath sounds are clear bilaterally. GI: No deficits noted. No signs and/or symptoms were reported involving the gastrointestinal system. Abdomen is flat, non-distended. : No signs and/or symptoms were reported regarding the genitourinary system. EENT: No deficits noted. Reports nasal congestion. Derm: No deficits noted. No signs and/or symptoms reported regarding the dermatologic system. Skin is intact, is healthy with good turgor, Skin is dry, Skin is normal, Skin temperature is warm. Musculoskeletal: No deficits noted. Circulation, motion, and sensation intact. Range of motion: intact in all extremities. 01:00 Reassessment: Patient and/or family updated on plan of care and expected duration. Pain ha1 level reassessed. Patient is alert, oriented x 3, equal unlabored respirations, skin warm/dry/pink. 02:00 Reassessment: Patient and/or family updated on plan of care and expected duration. Pain ha1 level reassessed. Patient is alert, oriented x 3, equal unlabored respirations, skin warm/dry/pink. Vital Signs: 00:06 BP 149 / 91; Pulse 71; Resp 16; Temp 99.55; Pulse Ox 99% ; Weight 86.18 kg; Height 5 vc1 ft. 9 in. ; Pain 0/10; 03:00 BP 150 / 93; Pulse 64; Resp 18 S; Pulse Ox 99% on R/A; ha1 00:06 Body Mass Index 28.06 (86.18 kg, 175.26 cm) vc1 00:06 Pain Scale: Adult vc1 ED Course: 00:02 Patient arrived in ED. gm2 00:07 Yony Dietrich PA-C is PHCP. cp 00:07 Dex Hays MD is Attending Physician. cp 00:08 Triage completed. vc1 00:09 Arm band placed on right wrist. vc1 00:12 Umu Potts, JULIANO is Primary Nurse. lg3 00:15 Patient has correct armband on for positive identification. Placed in gown. Bed in low lg3 position. Call light in reach. Side rails up X 1. Client placed on continuous cardiac and pulse oximetry monitoring. NIBP monitoring applied. Door closed. Noise minimized. Warm blanket given. Pillow given. 00:15 COVID swab sent to lab. Flu and/or RSV swab sent to lab. lg3 00:37 Chest Pa And Lat (2 Views) XRAY In Process Unspecified. EDMS 03:00 Provided Education on: medication administration . ha1 03:00 No provider procedures requiring assistance completed. ha1 03:00 Patient did not have IV access during this emergency room visit. ha1 Administered Medications: No medications were administered Medication: 00:15 VIS not applicable for this client. lg3 Outcome: 01:21 Discharge ordered by . cp 03:00 Discharged to home ambulatory, ha1 03:00 Condition: stable 03:00 Discharge instructions given to patient, Instructed on discharge instructions, follow up and referral plans. medication usage, Demonstrated understanding of instructions, follow-up care, medications, Prescriptions given X 2, 03:28 Patient left the ED. ha1 Signatures: Dispatcher [employer] EDMS Yony Dietrich PA-C PA-C cp Able, Lacie, RN RN lg3 Shanon Key RN RN 1 Margaret Emerson RN RN ha1 Taylor Ng 2
--- NOTE | 2025-06-02 01:51 | RAD REPORT ---
EXAM DESCRIPTION: Chest Pa And Lat (2 Views) CLINICAL HISTORY: COUGH COMPARISON: Chest x-ray 11/28/2024 TECHNIQUE: 2 views of the chest. FINDINGS: Lung volumes adequate. Cardiac silhouette is normal in size. No pneumothorax. No large pleural effusion. No focal consolidation. No acute bony finding. IMPRESSION: No evidence of acute cardiopulmonary disease. Electronically signed by: Nat Montgomery MD 06/02/2025 01:45 AM CDT RP TYG Due to temporary technical issues with the PACS/[employer] reporting system, reports are being clementine d by the in-house radiologist without review as a courtesy to ensure prompt reporting. The interpreting radiologist is fully responsible for the content of the report. Transcribed Date/Time: 06/02/2025 1:50 AM
[2025-06-02 03:42] VITALS: BP 150/93; O2SAT 99
== END 2025-06-02 03:28 | disposition home or self-care (01) ==
LOC: ER 23:48
DX: R05.9 Cough, unspecified (principal); Z72.0 Tobacco use; Z11.52 Encounter for screening for COVID-19
CPT/HCPCS: 36415; 71046; 87070; 87428; 99283